=== PATIENT | male | born 1955 | race African-American/Black ===

== ENCOUNTER 2017-07-14 08:04 | Day surgery (SDC) | payer OTHER ==
[2017-07-13 10:35] VITALS: BMI 35.6
[2017-07-14] MEDS ORDERED: DESFLURANE GAS 240 ML BOTTLE IH ONE (09:30)
[2017-07-14] MEDS ORDERED: MIDAZOLAM HCL 2 MG/2 ML SINGLE DOSE VIAL ONE (09:37)
[2017-07-14] MEDS ORDERED: PROPOFOL 20 ML ONE (09:37)
[2017-07-14] MEDS ORDERED: LIDOCAINE HCL/PF 2% SDV 5ML VIAL ONE (09:37)
[2017-07-14] MEDS ORDERED: ROCURONIUM BROMIDE 50 MG/5 ML VIAL ONE ×2 (10:04→11:13)
--- NOTE | 2017-07-14 10:04 | HP ---
History & Physical Update - History History: No Change - Physical Physical: No Change - Assessment Assessment: No Change - Plan Plan: No Change
[2017-07-14] MEDS ORDERED: ONDANSETRON 4 MG/2 ML VIAL ONE (10:56)
[2017-07-14] MEDS ORDERED: DEXAMETHASONE SOD PHOSPHATE 4 MG/1 ML VIAL ONE (10:56)
[2017-07-14] MEDS ORDERED: ceFAZolin SODIUM 1 GM VIAL ONE (10:57)
[2017-07-14] MEDS ORDERED: ceFAZolin SODIUM 1 GM VIAL IVPB ONE (11:33)
[2017-07-14] MEDS ORDERED: NEOSTIGMINE METHYLSULFATE 0.5 MG/ML - 10 ML MDV ONE (12:28)
[2017-07-14] MEDS ORDERED: GLYCOPYRROLATE 0.2 MG/1 ML VIAL ONE ×2 (12:28→12:29)
[2017-07-14] MEDS ORDERED: IBUPROFEN 800 MG/8 ML IJ IVPB PRN (12:34)
[2017-07-14] MEDS ORDERED: oxyCODONE HCL 5 MG TABLET PO PRN (12:34)
[2017-07-14] MEDS ORDERED: ONDANSETRON 4 MG/2 ML VIAL IVPUSH PRN (12:34)
[2017-07-14] MEDS ORDERED: BUPIVACAINE HCL/PF 0.25% (2.5MG/ML) 10 ML VIAL IJ ONE (12:35)
[2017-07-14] MEDS ORDERED: BUPIVACAINE HCL/PF (5 MG/ML) 30 ML VIAL IJ ONE (12:40)
[2017-07-14] MEDS ORDERED: LACTATED RINGERS SOLUTION 1,000 ML IV SCH (12:45)
[2017-07-14] MEDS ORDERED: HYDROmorphone HCL CARPU-JECT 2 MG/1 ML DISP.SYRIN ONE (13:00)
[2017-07-14] MEDS: HYDROmorphone HCL CARPU-JECT 1 MG/1 ML DISP.SYRIN IVPUSH PRN ×2 (13:05→13:25)
--- NOTE | 2017-07-14 13:13 | OP ---
Operative Note - Note: Operation: Laparoscopic repair of incarcerated , incisional hernia x 2, with mesh. Findings: Two large incisional herniae in the upper abdomen , with incarcerated omentum and fat 15 cm . x 25 cm. ventralite mesh used to cover the defect. Implants: Ventralite mesh, 20cm. x 15 cm, used. Surgeon: Padmaja Jaime [employer] Supervisor: Jeremy Pedraza Anesthesiologist/VICE PRESIDENT OF SOFTWARE DEVELOPMENT: Virginia Marks Anesthesia: General Specimens Removed: Incarcerated omentum and fat. Estimated Blood Loss (mls): 10 Operative Report Dictated: Yes
--- NOTE | 2017-07-14 13:38 | SURG ---
Surgery Preschool Head Teacher Note Preschool Head Teacher: Jeremy Pedraza PA-C Date of Service: 07/14/17 Diagnosis: incarcerated , incisional hernia Procedure: Laparoscopic repair of incarcerated , incisional hernia x 2, with mesh. Findings: Two large incisional hernia in the upper abdomen , with incarcerated omentum and fat 15 cm . x 25 cm. ventralite mesh used to cover the defect. I was present for the entirety of the operative procedure. For further detail, please refer to operative report. Visit type - Case Type Case Type: Scheduled Admission - New patient This patient is new to me today: Yes Date on this admission: 07/14/17
[2017-07-14] MEDS ORDERED: IBUPROFEN 800 MG/8 ML IJ IVPB ONE (13:56)
[2017-07-14 14:53] VITALS: TEMP 97.8
[2017-07-14] MEDS ORDERED: oxyCODONE HCL 5 MG TABLET ONE ×2 (15:21→15:50)
[2017-07-14 17:21] VITALS: BP 152/80; PULSE 97
--- NOTE | 2017-07-15 19:23 | OP ---
DATE OF OPERATION: 07/14/2017 PREOPERATIVE DIAGNOSIS: Two incisional hernias in the anterior abdominal wall for robotic prostatectomy, incarcerated. POSTOPERATIVE DIAGNOSIS: Incarcerated incisional hernia of the abdomen x2. OPERATIVE PROCEDURE: Laparoscopic repair of incarcerated incisional hernia in the abdomen x2 with Ventralight mesh 20 cm x 15 cm. ANESTHESIA: General anesthesia. SURGEON: Johanne Jaime MD MERCHANDISE SUPERVISOR: SHAHBAZ Farris ANESTHESIOLOGIST: Virginia Marks MD OPERATIVE DESCRIPTION: This 62-year-old man had robotic surgery about 2-3 years ago. Subsequent to that, he developed anterior abdominal hernia about the umbilicus. There were 2 hernias, one just above the umbilicus at about 4 cm in diameter with a large amount of incarcerated abdominal contents. There was another one above that for about 2-3 cm as well, which was also incarcerated fat. The patient was brought in for repair of the hernia. Consent was obtained. Risks, benefits, and complications were discussed with the patient. The patient was given general anesthesia. The abdomen was prepped and draped. Nagy catheter was placed in the bladder. This was removed after the surgery. Incision was made in the subxiphoid region of the abdomen in the midline, which was deepened through the skin, subcutaneous tissue, linea alba, and the peritoneum. The abdominal cavity was entered, and a 10- to 12-mm laparoscopic trocar of the [place] type was introduced into the abdominal cavity. The abdomen was infiltrated with carbon dioxide at 6 L/min at a maximum intra-abdominal pressure of 15 mmHg. A 5-mm 30-degree angled laparoscopic camera was introduced into the abdominal cavity. The abdomen was inflated with carbon dioxide at 6 L/min. Two 5-mm trocars were then inserted on each side of the abdomen in the flank, one just about anterior superior iliac spine, another below the costal margin. These were noted entering the abdominal cavity under direct vision of the camera. There was omentum, which was incarcerated within the hernia. Using a grasper, the omentum was gradually reduced into the abdominal cavity. There were adhesions of fat and omentum to the anterior abdominal wall. This was also lysed with the harmonic scalpel. Once this was reduced, the defect was about 4 cm in diameter. About this, there was another hernia just to the right of the midline along the falciform ligament with some fat protruding through that. This was also reduced, and a defect was noted. It was decided to combine these 2 defects and use the mesh. The peritoneum around the larger defect was pulled down into the abdominal cavity, and the edges were freshened. All fat within the site was reduced in the abdominal cavity. The abdominal wall was then approximated with primary repair using 2-0 Prolene sutures. This was introduced by making small incisions on either side of the midline near the abdomen just in the mid rectus region. Then 2-0 Prolene was passed under the skin from one site of the abdomen to the other using the suture passer. This was then introduced into the abdominal cavity. The suture was grasped within the abdominal cavity and pulled down so it was passed across the defect to the opposite side. With a suture passer on the opposite side, the suture was grasped and brought out of the abdomen. Three short sutures were obtained, one in the center of the defect, one above and below the defect. Once this was done , the abdomen was approximated by fastening the knot beneath the skin. This brought the 2 sides of the abdomen today. Once this was done, a 20-cm x 15-cm Ventralight mesh with an inflatable balloon device was introduced through the subxiphoid 10-mm port and placed in the abdominal cavity. The center inflatable tube was then brought out through the center of the abdominal wall repair through a small incision on the skin and passing suture passer, balloon was brought out through the center of the defect. This inflatable device was then inflated. , the central tube for injecting air,was pulled up through the abdom,inal wall. The mesh was then placed against the anterior abdominal wall covering the defect adequately, circumferentially, and beyond 2-3 cm on either side. Once this was done, a clamp was placed on the anterior abdominal wall at the site of exit of the rubber tubing. The mesh was then anchored to the anterior abdominal wall circumferentially with the absorbable tackers. This was first placed around the edge of the mesh to the anterior abdominal wall. Passing the tacker on either side and putting counterpressure on the other side of the abdomen. Once this was placed at the edges, another layer of absorbable mesh was placed between the center and the peripheral edge of the mesh circumferentially. The mesh was, thus, adequately placed. A few metallic tackers were placed at the periphery, one on each side, one above and below. The mesh was adequately placed. The inflatable device was then pulled out of the abdominal cavity by dividing the rubber tubing at the edge of the skin and pulling the inflatable device from the abdominal cavity with the grasper through the 12-mm grasper. The old inflatable device was then removed out of the abdominal cavity completely. The mesh was adequately placed circumferentially covering both the defects. There was no bleeding and no injury to the bowel. The abdomen was partially deflated while approximating the abdomen and while inserting the tackers. The abdomen was then completely deflated. The instruments were withdrawn. The linea alba in the midline in the subxiphoid region was approximated with interrupted and [id number] 2-0 Vicryl sutures. The subcutaneous fat was approximated with buried interrupted 3-0 Vicryl sutures and skin approximated with 4-0 Monocryl suture in a subcuticular fashion. Sponge count and instrument count was correct. Estimated blood loss was less than 10 mL. Dermabond was applied at the skin edges. An abdominal binder was applied after the patient was moved to the stretcher. The patient tolerated the procedure well, was extubated, and was sent to the recovery room in satisfactory and stable condition. Osmin [id number] cc: MD JILLIAN Chapman
--- NOTE | 2017-07-17 13:36 | PATH ---
Surgical Pathology Report Patient Name: KEVIN HASKINS [facility]. Rec. #: [id number] /Age/Gender: 1955 (Age: 62) / M Account: [id number] Location: [facility] SURGICAL Taken: 07/14/2017 Received: 07/14/2017 Reported: 07/17/2017 Physicians: Johanne Jaime M.D. Specimen(s) Received CONTENTS OF HERNIA SAC Clinical History Incarcerated ventral hernia Final Diagnosis CONTENTS OF HERNIA SAC, INCARCERATED VENTRAL HERNIA REPAIR: BENIGN FATTY TISSUE WITH VASCULAR CONGESTION. Electronically Signed Aron Car M.D. Gross Description Received in formalin labeled "contents of hernia sac" is a 6.0 x 4.0 x 1.8 cm aggregate of yellow, lobulated adipose tissue with minimal attached fibromembranous tissue. Construction Worker sections are submitted in one cassette. /07/14/2017 saudi/07/14/2017
== END 2017-07-14 16:00 | disposition home or self-care (01) ==
LOC: JASU-SURG 08:04
PROVIDERS: ATTEND Specialist
PROC: 0WUF4JZ Supplement Abdominal Wall with Synthetic Substitute, Percutaneous Endoscopic Approach (ICD-10-PCS; principal; 2017-07-14 09:30)
DX: K43.0 Incisional hernia with obstruction, without gangrene (principal)
CPT/HCPCS: 88302-TC; 94760